=== PATIENT | male | born 1970 | race Caucasian/White ===

== ENCOUNTER 2018-11-13 20:18 | Observation (INO) | payer OTHER ==
[2018-11-13] MEDS ORDERED: methylPREDNISolone SOD SUCCI 125 MG/2 ML VIAL IV STA (21:37)
[2018-11-13] MEDS ORDERED: hydrOXYzine HCL 25 MG TAB PO STA (21:38)
[2018-11-13] MEDS ORDERED: VANCOMYCIN IV PER PHARMACY 1 EACH MISC MISCELLANE PRN (21:38)
[2018-11-13] MEDS ORDERED: VANCOMYCIN 1,500 MG in SODIUM CHLORIDE 0.9% 250 ML IVPB STA (21:40)
--- NOTE | 2018-11-13 21:55 | ED ---
Skin/Abscess/FB HPI - General Chief complaint: Skin/Abscess/Foreign Body Stated complaint: Rash on skin Time Seen by Provider: 11/13/18 20:46 Source: patient, RN notes reviewed Mode of arrival: ambulatory Limitations: no limitations - Related Data Home Medications Medication Instructions Recorded Confirmed Acetaminophen Tab [Tylenol Tab] 650 mg PO Q4H PRN 11/13/18 11/13/18 diphenhydrAMINE HCL [Benadryl] 25 - 50 mg PO Q6H PRN 11/13/18 11/13/18 Allergies Allergy/AdvReac Type Severity Reaction Status Date / Time No Known Allergies Allergy Verified 11/13/18 21:18 Review of Systems ROS Statement: Those systems with pertinent positive or pertinent negative responses have been documented in the HPI. ROS Other: All systems not noted in ROS Statement are negative. Past Medical History Past Medical History: No Reported History History of Any Multi-Drug Resistant Organisms: None Reported Past Surgical History: No Surgical Hx Reported Past Psychological History: No Psychological Hx Reported Smoking Status: Current every day smoker Past Alcohol Use History: None Reported Past Drug Use History: None Reported General Exam Limitations: no limitations General appearance: alert, in no apparent distress Head exam: Present: atraumatic, normocephalic, normal inspection Eye exam: Present: normal appearance, PERRL, EOMI. Absent: scleral icterus, conjunctival injection, periorbital swelling ENT exam: Present: normal oropharynx, mucous membranes moist, TM's normal bilaterally. Absent: normal external ear exam (Moderate swelling and erythema noted to the left ear, purulent drainage noted, open wounds) Neck exam: Present: normal inspection, full ROM. Absent: tenderness, meningismus, lymphadenopathy Respiratory exam: Present: normal lung sounds bilaterally. Absent: respiratory distress, wheezes, rales, rhonchi, stridor Cardiovascular Exam: Present: regular rate, normal rhythm, normal heart sounds. Absent: systolic murmur, diastolic murmur, rubs, gallop, clicks GI/Abdominal exam: Present: soft, normal bowel sounds. Absent: distended, tenderness, guarding, rebound, rigid Neurological exam: Present: alert, oriented X3 Skin exam: Present: warm, dry, intact, normal color, rash (Diffuse erythematous patchy rash with noted dry skin, hands are scaly) Course Vital Signs 11/13/18 11/13/18 20:31 22:29 Temperature 98.2 F Pulse Rate 87 78 Respiratory 20 16 Rate Blood Pressure 119/70 101/70 O2 Sat by Pulse 98 95 Oximetry Medical Decision Making - Medical Decision Making 48-year-old male presented for rash, swelling. Patient will be admitted for IV steroids, antibiotics and further evaluation. - Lab Data Result diagrams: 11/13/18 21:51 11/13/18 21:51 Lab Results 11/13/18 11/13/18 Range/Units 21:51 21:51 WBC 12.6 H (3.8-10.6) k/uL RBC 5.01 (4.30-5.90) m/uL Hgb 16.0 (13.0-17.5) gm/dL Hct 49.8 (39.0-53.0) % MCV 99.5 (80.0-100.0) fL MCH 32.0 (25.0-35.0) pg MCHC 32.1 (31.0-37.0) g/dL RDW 14.6 (11.5-15.5) % Plt Count 356 (150-450) k/uL Neutrophils % 63 % Lymphocytes % 24 % Monocytes % 7 % Eosinophils % 4 % Basophils % 1 % Neutrophils # 7.9 H (1.3-7.7) k/uL Lymphocytes # 3.0 (1.0-4.8) k/uL Monocytes # 0.8 (0-1.0) k/uL Eosinophils # 0.6 (0-0.7) k/uL Basophils # 0.1 (0-0.2) k/uL Macrocytosis Slight Sodium 142 (137-145) mmol/L Potassium 4.1 (3.5-5.1) mmol/L Chloride 107 (98-107) mmol/L Carbon Dioxide 27 (22-30) mmol/L Anion Gap 8 mmol/L BUN 16 (9-20) mg/dL Creatinine 0.96 (0.66-1.25) mg/dL Est GFR (CKD-EPI)AfAm >90 (>60 ml/min/1.73 sqM) Est GFR (CKD-EPI)NonAf >90 (>60 ml/min/1.73 sqM) Glucose 97 (74-99) mg/dL Calcium 9.7 (8.4-10.2) mg/dL Total Bilirubin 0.5 (0.2-1.3) mg/dL AST 27 (17-59) U/L ALT 37 (21-72) U/L Alkaline Phosphatase 91 (38-126) U/L Total Protein 7.7 (6.3-8.2) g/dL Albumin 4.3 (3.5-5.0) g/dL Disposition Clinical Impression: Dermatitis, Cellulitis, face Disposition: ADMITTED IP TO THIS HOSP Referrals: None,Stated [Primary Care Provider] - 1-2 days
[2018-11-13 22:12] LABS: Basophils # (A) 0.1 k/uL (0-0.2); Basophils % (A) 1 %; Eosinophils # (A) 0.6 k/uL (0-0.7); Eosinophils % (A) 4 %; HCT 49.8 % (39.0-53.0); Lymphocytes % (A) 24 %; MCHC 32.1 g/dL (31.0-37.0); MCV 99.5 fL (80.0-100.0); Macrocytosis Slight; Mean Platelet Volume 6.1; Monocytes # (A) 0.8 k/uL (0-1.0); Monocytes % (A) 7 %; Neutrophils # (A) 7.9 k/uL (1.3-7.7); Neutrophils % (A) 63 %; Platelet Count 356 k/uL (150-450); RBC 5.01 m/uL (4.30-5.90); RDW 14.6 % (11.5-15.5); WBC 12.6 k/uL (3.8-10.6)
[2018-11-13 22:21] LABS: ALT 37 U/L (21-72); AST 27 U/L (17-59); Albumin 4.3 g/dL (3.5-5.0); Alkaline Phosphatase 91 U/L (38-126); Anion Gap 8 mmol/L; Blood Urea Nitrogen 16 mg/dL (9-20); Calcium 9.7 mg/dL (8.4-10.2); Carbon Dioxide 27 mmol/L (22-30); Chloride 107 mmol/L (98-107); Glucose 97 mg/dL (74-99); Potassium 4.1 mmol/L (3.5-5.1); Sodium 142 mmol/L (137-145); Total Bilirubin 0.5 mg/dL (0.2-1.3); Total Protein 7.7 g/dL (6.3-8.2)
--- NOTE | 2018-11-13 22:47 | XR ---
EXAM: XR Chest, 2 Views CLINICAL HISTORY: Reason: Cough/pain TECHNIQUE: Frontal and lateral views of the chest. COMPARISON: None available FINDINGS: Lungs: Right basilar opacity suggesting right middle lobe infiltrate or partial atelectasis. Lungs are otherwise clear. Pleural space: No evidence of pneumothorax or pleural effusion. Heart: Heart size is within normal limits. Mediastinum: Mediastinal structures are unremarkable. Bones/joints: Mild mid-lower thoracic vertebral compression fractures of indeterminate age. IMPRESSION: Right middle lobe infiltrate or partial atelectasis. Findings raise possibility of pneumonia. Clinical correlation is suggested and short- term radiographic follow-up recommended to confirm clearing.
[2018-11-13] MEDS ORDERED: NALOXONE 0.4 MG/ML 1 ML VIAL IV PRN (23:04)
[2018-11-14] MEDS ORDERED: diphenhydrAMINE 25 MG CAP PO PRN (02:12)
--- NOTE | 2018-11-14 06:19 | P.HPIM ---
History of Present Illness H&P Date: 11/14/18 Patient is a 48-year-old male with no known PMH who presented to the ED due to diffuse rash. The patient notes that he was in his usual state of health until for 5 days ago when he initially noticed some small white lesions on the palmar aspect of his hands bilaterally. The rash subsequently spread to his hands, elbows, back, scalp, abdomen, and groin region. The rash was somewhat burning in nature, and is intensely pruritic. The patient notes that he has never had such a rash in the past. He also endorsed multiple episodes of fever at home over the last few weeks which resolved spontaneously. He also endorsed mild diffuse joint pains, and increased fatigue during that same time. The patient denied any tick bites, new medications, sick contacts, chest pain, shortness of breath, nausea, vomiting, abdominal pain, diarrhea. 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 Review of Systems Pertinent positives and negatives as discussed in HPI, a complete review of systems was performed and all other systems are negative. Past Medical History Past Medical History: No Reported History Additional Past Medical History / Comment(s): drives trucks throughout [facility] History of Any Multi-Drug Resistant Organisms: None Reported Past Surgical History: No Surgical Hx Reported Past Anesthesia/Blood Transfusion Reactions: No Reported Reaction Past Psychological History: No Psychological Hx Reported Smoking Status: Current every day smoker Past Alcohol Use History: None Reported Past Drug Use History: None Reported Medications and Allergies Home Medications Medication Instructions Recorded Confirmed Type Acetaminophen Tab [Tylenol Tab] 650 mg PO Q4H PRN 11/13/18 11/13/18 History diphenhydrAMINE HCL [Benadryl] 25 - 50 mg PO Q6H PRN 11/13/18 11/13/18 History Allergies Allergy/AdvReac Type Severity Reaction Status Date / Time No Known Allergies Allergy Verified 11/13/18 21:18 Physical Exam Vitals: Vital Signs Temp Pulse Pulse Resp BP BP Pulse Ox 11/14/18 02:12 97.2 F L 80 18 106/68 94 L 11/14/18 00:30 61 16 109/70 95 11/13/18 23:22 83 15 102/66 95 11/13/18 22:29 78 16 101/70 95 11/13/18 20:31 98.2 F 87 20 119/70 98 Intake and Output 11/13/18 11/13/18 11/14/18 14:59 22:59 06:59 Other: Weight 77.111 kg General: non toxic, no distress, appears at stated age, normal weight Derm: [place] rash with silver scales throughout Head: atraumatic, normocephalic, symmetric Eyes: EOMI, no lid lag, anicteric sclera, pupils equal round reactive to light ENT: Nose and ears atraumatic, no thrush, no pharyngeal erythema Neck: No thyromegaly, no cervical lymphadenopathy, trachea midline, supple Mouth: no lip lesion, mucus membranes moist Cardiovascular: S1S2 reg, no murmur, positive posterior tibial pulse bilateral, no edema, capillary refill less than 2 seconds Lungs: CTA bilateral, no rhonchi, no rales , no accessory muscle use Abdominal: soft, nontender to palpation, left inguinal hernia, patient able to reduce the hernia but with some discomfort, mild to moderate tenderness to palpation of hernia Ext: no gross muscle atrophy, muscle strength 5 out of 5 in all 4 extremities grossly, no contractures, Neuro: CN II-XI grossly intact, light touch intact all 4 extremities, finger to nose within normal limits, Psych: Alert, oriented, appropriate affect Results CBC & Chem 7: 11/13/18 21:51 11/13/18 21:51 Labs: Abnormal Lab Results - Last 24 Hours (Table) 11/13/18 Range/Units 21:51 WBC 12.6 H (3.8-10.6) k/uL Neutrophils # 7.9 H (1.3-7.7) k/uL Thrombosis Risk Factor Assmnt - Choose All That Apply Each Factor Represents 1 point: Age 41-60 years Thrombosis Risk Factor Assessment Total Risk Factor Score: 1 Thrombosis Risk Factor Assessment Level: Low Risk Assessment and Plan Plan: Rash, possibly psoriasis, explosive, possible superimposed bacterial infection -Check HIV status -Check ESR, CRP -Check serology including LUCIAN, and dsDNA -Consider Dermatology consult -C/w Solu-medrol 40 mg q12h Left-sided hernia, tender -Surgery consult DVT//GI prophylaxis -Heparin -Protonix The patient is admitted with an anticipated less than 2 midnight stay for evaluation of rash. CODE STATUS: Full code Discussed with: Patient Anticipated discharge date: 11/16/[address]: Home A total of 40 minutes was spent on the care of this complex patient more than 50 % of the time was spent in counseling and care coordination.
[2018-11-14] MEDS: HEPARIN SODIUM,PORCINE 5,000 UNIT/ML 1 ML VIAL SQ SCH ×2 (08:12→18:05)
[2018-11-14] MEDS: PANTOPRAZOLE 40 MG TABLET PO SCH (08:12)
[2018-11-14] MEDS: methylPREDNISolone SOD SUCCI 40 MG/ML 1 ML VIAL IV SCH ×2 (11:13→21:59)
--- NOTE | 2018-11-14 11:15 | P.GSCN ---
<Vale Johnson - Last Filed: 11/14/18 11:10> History of Present Illness Consult date: 11/14/18 Reason for Consult: hernia Requesting physician: Ruth Navarro History of present illness: CHIEF COMPLAINT: hernia HISTORY OF PRESENT ILLNESS: 48-year-old male who really presented to the hospital due to rash. General surgery was consulted for left hernia. Patient was examined at the bedside. Patient states he has had this hernia for approximately one year. He does report it has increased in size. He also reports increased pain to the area. Denies constipation or diarrhea. Denies blood in his stool. Denies nausea or vomiting. 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 PAST MEDICAL HISTORY: See list. PAST SURGICAL HISTORY: See list. MEDICATIONS: See list. ALLERGIES: See list. SOCIAL HISTORY: No illicit drug use. REVIEW OF SYSTEMS: CONSTITUTIONAL: Denies fever or chills. HEENT: Denies blurred vision, vision changes, or eye pain. Denies hemoptysis ENDOCRINE: Denies heat or cold intolerance. CARDIOVASCULAR: Denies chest pain or pressure. RESPIRATORY: No shortness of breath. GASTROINTESTINAL: Denies abdominal pain. Denies nausea or vomiting. Reports hernia with increased pain. NEURO: Denies history of seizures. PSYCH: No depression or suicidal ideation HEMATOLOGIC: Denies bleeding disorders. LYMPHATIC: The patient denies any lumps and bumps around the neck. GENITOURINARY: Denies any blood in urine or increased urinary frequency. MUSCULOSKELETAL: Denies myalgias. Denies joint swelling. Denies decreased range of motion beyond patients baseline. SKIN: Reports rash. PHYSICAL EXAM: VITAL SIGNS: Currently stable. GENERAL: Well-developed in no acute distress. HEENT: No sclera icterus. Extraocular movements grossly intact. Moist buccal mucosa. Head is atraumatic, normocephalic. Hears conversational speech. No nasal drainage. NECK: Supple without lymphadenopathy. CHEST: Non-labored respirations and equal bilateral excursions. CARDIOVASCULAR: Regular rate with regular rhythm. Palpable 2+ radial pulses. ABDOMEN: Soft. Nondistended. Left inguinal hernia present. Reducible although tender upon palpation. MUSCULOSKELETAL: No clubbing, cyanosis or edema. NEUROLOGIC: No focal or lateralizing signs. Cranial nerves II through XII grossly intact. PSYCH: Appropriate affect. Alert and oriented to person, place and time. SKIN: Well perfused. Good skin turgor. Rash present. ASSESSMENT: 1. Left inguinal hernia PLAN: 1. Obtain CT scan abdomen/pelvis 2. Regular diet 3. Further recommendations to follow Nurse practitioner note has been reviewed by physician. Signing provider agrees with the documented findings, assessment, and plan of care. Past Medical History Past Medical History: No Reported History Additional Past Medical History / Comment(s): drives trucks throughout [facility] History of Any Multi-Drug Resistant Organisms: None Reported Past Surgical History: No Surgical Hx Reported Past Anesthesia/Blood Transfusion Reactions: No Reported Reaction Past Psychological History: No Psychological Hx Reported Smoking Status: Current every day smoker Past Alcohol Use History: None Reported Past Drug Use History: None Reported Medications and Allergies Home Medications Medication Instructions Recorded Confirmed Type Acetaminophen Tab [Tylenol Tab] 650 mg PO Q4H PRN 11/13/18 11/13/18 History diphenhydrAMINE HCL [Benadryl] 25 - 50 mg PO Q6H PRN 11/13/18 11/13/18 History Allergies Allergy/AdvReac Type Severity Reaction Status Date / Time No Known Allergies Allergy Verified 11/13/18 21:18 Surgical - Exam Vital Signs Temp Pulse Resp BP Pulse Ox 98.2 F 87 20 119/70 98 11/13/18 20:31 11/13/18 20:31 11/13/18 20:31 11/13/18 20:31 11/13/18 20:31 Results - Labs 11/13/18 21:51 11/13/18 21:51 Abnormal Lab Results - Last 24 Hours (Table) 11/13/18 11/14/18 11/14/18 Range/Units 21:51 08:01 08:01 WBC 12.6 H (3.8-10.6) k/uL Neutrophils # 7.9 H (1.3-7.7) k/uL ESR 18 H (0-15) mm/hr C-Reactive Protein 14.2 H (<10.0) mg/L Diabetes panel 11/13/18 Range/Units 21:51 Sodium 142 (137-145) mmol/L Potassium 4.1 (3.5-5.1) mmol/L Chloride 107 (98-107) mmol/L Carbon Dioxide 27 (22-30) mmol/L BUN 16 (9-20) mg/dL Creatinine 0.96 (0.66-1.25) mg/dL Glucose 97 (74-99) mg/dL Calcium 9.7 (8.4-10.2) mg/dL AST 27 (17-59) U/L ALT 37 (21-72) U/L Alkaline Phosphatase 91 (38-126) U/L Total Protein 7.7 (6.3-8.2) g/dL Albumin 4.3 (3.5-5.0) g/dL Calcium panel 11/13/18 Range/Units 21:51 Calcium 9.7 (8.4-10.2) mg/dL Albumin 4.3 (3.5-5.0) g/dL Pituitary panel 11/13/18 Range/Units 21:51 Sodium 142 (137-145) mmol/L Potassium 4.1 (3.5-5.1) mmol/L Chloride 107 (98-107) mmol/L Carbon Dioxide 27 (22-30) mmol/L BUN 16 (9-20) mg/dL Creatinine 0.96 (0.66-1.25) mg/dL Glucose 97 (74-99) mg/dL Calcium 9.7 (8.4-10.2) mg/dL Adrenal panel 11/13/18 Range/Units 21:51 Sodium 142 (137-145) mmol/L Potassium 4.1 (3.5-5.1) mmol/L Chloride 107 (98-107) mmol/L Carbon Dioxide 27 (22-30) mmol/L BUN 16 (9-20) mg/dL Creatinine 0.96 (0.66-1.25) mg/dL Glucose 97 (74-99) mg/dL Calcium 9.7 (8.4-10.2) mg/dL Total Bilirubin 0.5 (0.2-1.3) mg/dL AST 27 (17-59) U/L ALT 37 (21-72) U/L Alkaline Phosphatase 91 (38-126) U/L Total Protein 7.7 (6.3-8.2) g/dL Albumin 4.3 (3.5-5.0) g/dL <Marino Ramos - Last Filed: 11/14/18 18:35> History of Present Illness History of present illness: As above. Patient has had this hernia for the last year or so. Slightly increased in size. No nausea or vomiting. Normal bowel habits. On examination the hernia is fully reducible without significant difficulty. Mild tenderness on exam at this time. No urgent surgical intervention required. Would complete workup of the patient's rash. Patient can follow-up in the outpatient setting. We'll sign off. Please call if needed. Surgical - Exam Vital Signs Temp Pulse Resp BP Pulse Ox 98.2 F 87 20 119/70 98 11/13/18 20:31 11/13/18 20:31 11/13/18 20:31 11/13/18 20:31 11/13/18 20:31 Results - Labs 11/13/18 21:51 11/13/18 21:51 Abnormal Lab Results - Last 24 Hours (Table) 11/13/18 11/14/18 11/14/18 Range/Units 21:51 08:01 08:01 WBC 12.6 H (3.8-10.6) k/uL Neutrophils # 7.9 H (1.3-7.7) k/uL ESR 18 H (0-15) mm/hr C-Reactive Protein 14.2 H (<10.0) mg/L Diabetes panel 11/13/18 Range/Units 21:51 Sodium 142 (137-145) mmol/L Potassium 4.1 (3.5-5.1) mmol/L Chloride 107 (98-107) mmol/L Carbon Dioxide 27 (22-30) mmol/L BUN 16 (9-20) mg/dL Creatinine 0.96 (0.66-1.25) mg/dL Glucose 97 (74-99) mg/dL Calcium 9.7 (8.4-10.2) mg/dL AST 27 (17-59) U/L ALT 37 (21-72) U/L Alkaline Phosphatase 91 (38-126) U/L Total Protein 7.7 (6.3-8.2) g/dL Albumin 4.3 (3.5-5.0) g/dL Calcium panel 11/13/18 Range/Units 21:51 Calcium 9.7 (8.4-10.2) mg/dL Albumin 4.3 (3.5-5.0) g/dL Pituitary panel 11/13/18 Range/Units 21:51 Sodium 142 (137-145) mmol/L Potassium 4.1 (3.5-5.1) mmol/L Chloride 107 (98-107) mmol/L Carbon Dioxide 27 (22-30) mmol/L BUN 16 (9-20) mg/dL Creatinine 0.96 (0.66-1.25) mg/dL Glucose 97 (74-99) mg/dL Calcium 9.7 (8.4-10.2) mg/dL Adrenal panel 11/13/18 Range/Units 21:51 Sodium 142 (137-145) mmol/L Potassium 4.1 (3.5-5.1) mmol/L Chloride 107 (98-107) mmol/L Carbon Dioxide 27 (22-30) mmol/L BUN 16 (9-20) mg/dL Creatinine 0.96 (0.66-1.25) mg/dL Glucose 97 (74-99) mg/dL Calcium 9.7 (8.4-10.2) mg/dL Total Bilirubin 0.5 (0.2-1.3) mg/dL AST 27 (17-59) U/L ALT 37 (21-72) U/L Alkaline Phosphatase 91 (38-126) U/L Total Protein 7.7 (6.3-8.2) g/dL Albumin 4.3 (3.5-5.0) g/dL
[2018-11-14] MEDS: IOPAMIDOL-300 CONTRAST 30 ML VIAL (ORAL USE) PO PRN ×2 (11:22→12:06)
[2018-11-14] MEDS: VANCOMYCIN 1,500 MG in SODIUM CHLORIDE 0.9% 250 ML IVPB SCH (12:07)
--- NOTE | 2018-11-14 13:44 | CT ---
EXAMINATION TYPE: CT abdomen pelvis w con DATE OF EXAM: 11/14/2018 COMPARISON: 08/01/2010 HISTORY: LLQ pain CT DLP: 651.6 mGycm Automated exposure control for dose reduction was used. TECHNIQUE: Helical acquisition of images was performed from the lung bases through the pelvis. CONTRAST: Performed with Oral Contrast and with IV Contrast, patient injected with 100 mL of Isovue 300. FINDINGS: None LUNG BASES: Right middle lobe atelectasis is noted as well as minimal bibasilar subsegmental dependen t atelectasis. Bandlike pleural parenchymal scarring is seen at the left lung base. Small hiatal kirby ia is present. LIVER/GB: Too small to accurately character is left hepatic lobe lesion is seen on series 3 image 29 measuring 3 mm. This is unchanged from the prior of 2009 and therefore most compatible with a benign cyst as has appearance of fluid attenuation on the prior. PANCREAS: No significant abnormality is seen. SPLEEN: No significant abnormality is seen. ADRENALS: No significant abnormality is seen. KIDNEYS: Kidneys enhance and excrete symmetrically without hydronephrosis. FREE AIR: No free air is visualized. ADENOPATHY: No greater than 1 cm short axis lymph node is seen within the abdomen or pelvis. URINARY BLADDER: No significant abnormality is seen. OSSEOUS STRUCTURES: There is grade 2 anterolisthesis of L5 on S1 with associated severe degenerative change secondary to bilateral pars interarticularis defects. BOWEL: There is a left inguinal hernia containing loops of small bowel. The afferent and efferent lo ops are decompressed as the anterior accident the hernia. Small bowel loops within the hernia demonst rate no evidence of pneumatosis intestinalis however appear incarcerated. Proximal small bowel is non dilated. Moderate amount retained colonic stool is noted. IMPRESSION: SMALL BOWEL CONTAINING LEFT INGUINAL CANAL WITH THE ENTERING AND EXITING AFFERENT AND EFFERENT LOOPS DECOMPRESSED CONCERNING FOR INCARCERATION. CORRELATE WITH CLINICAL EXAM. NO SIGNIFICANT SURROUNDING I NFLAMMATORY CHANGE OR PNEUMATOSIS INTESTINALIS.
--- NOTE | 2018-11-14 15:39 | P.PN ---
Progress Note - Text Progress Note Date: 11/14/18 Please refer to the H&P for full details. 48-year-old male with no PMH presents the ED for diffuse rash and hernia of the abdominal wall. He was started on IV vancomycin and Solu-Medrol IV for his rash and surgery was consulted for possible incarcerated hernia. Patient was seen and examined around 3:30 PM. No acute events overnight. Patient reports great improvement in his rash since being started on steroids and antibiotics. He continues to complain of left-sided abdominal pain at the site of his hernia. Patient reports being able to manually reduce it. CT of the abdomen is performed which shows left inguinal hernia concerning for incarceration. We will continue IV steroids and antibiotics for his rash. His ESR and CRP is elevated. Surgery is evaluating the patient for his inguinal hernia and will follow-up with surgery for further recommendations regarding the course of action for this patient. We will follow blood cultures, LUCIAN, anti-double- stranded DNA, HIV. Patient is likely going to be discharged tomorrow if there is no surgical intervention planned. He is pending clinical improvement.
[2018-11-14 16:20] LABS: DNA Double-Stranded NEGATIVE (NEGATIVE)
[2018-11-14 17:24] LABS: HIV 1 AB Non-Reactive (Non-Reactive); HIV AB P24 Non-Reactive (Non-Reactive); HIV P24 AG Non-Reactive (Non-Reactive)
[2018-11-15] MEDS: VANCOMYCIN 1,500 MG in SODIUM CHLORIDE 0.9% 250 ML IVPB SCH ×2 (00:22→11:59)
[2018-11-15] MEDS: HEPARIN SODIUM,PORCINE 5,000 UNIT/ML 1 ML VIAL SQ SCH ×2 (00:23→08:23)
[2018-11-15 08:19] VITALS: BP 110/59; PULSE 57; RESP 16; TEMP 97.2
[2018-11-15] MEDS: PANTOPRAZOLE 40 MG TABLET PO SCH (08:22)
[2018-11-15] MEDS: methylPREDNISolone SOD SUCCI 40 MG/ML 1 ML VIAL IV SCH (08:56)
--- NOTE | 2018-11-15 09:08 | P.DS ---
Providers Date of admission: 11/14/18 00:10 Expected date of discharge: 11/15/18 Attending physician: Ruth Navarro MD Consults: Surgery Primary care physician: Stated None Hospital Course: 48-year-old male with no known PMH who presented to the ED due to diffuse rash. The patient notes that he was in his usual state of health until for 5 days ago when he initially noticed some small white lesions on the palmar aspect of his hands bilaterally. The rash subsequently spread to his hands, elbows, back , scalp, abdomen, and groin region. The rash was somewhat burning in nature, and is intensely pruritic. The patient notes that he has never had such a rash in the past. He also endorsed multiple episodes of fever at home over the last few weeks which resolved spontaneously. He also endorsed mild diffuse joint pains, and increased fatigue during that same time. The patient denied any tick bites, new medications, sick contacts, chest pain, shortness of breath, nausea, vomiting, abdominal pain, diarrhea. 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 His rash was thought to be secondary to psoriasis flareup. Patient was afebrile but had a mild leukocytosis of 12.6. HIV was negative. ESR and CRP was slightly elevated. LUCIAN and double-stranded DNA were negative. Patient was started on Solu-Medrol 40 mg IV twice a day and vancomycin IV. He was transitioned to prednisone on discharge. Vancomycin was discontinued, thought to be not an infectious cause. Surgery was consulted for his left and one or hernia. CT of the abdomen and pelvis was performed confirming the hernia, possible strangulation. Patient was evaluated by general surgery Dr. Ramos and was advised to follow-up in the outpatient setting for possible elective surgery. Patient was seen and examined prior to discharge. No acute events overnight. Patient reports great improvement in his rash. He denies any fever or chills. No nausea or vomiting. Patient denies any abdominal pain, changes in bowel habits. He is looking for to going home. General: [non toxic], [no distress], [appears at stated age] Derm: [warm], [dry], [widespread papular rash over the palms, extensor surfaces in all 4 extremities and around the scalp hairline] Head: [atraumatic], [normocephalic], [symmetric] Eyes: [EOMI], [no lid lag], [anicteric sclera] Mouth: [no lip lesion], [mucus membranes moist] Cardiovascular: [S1S2 reg], [no murmur], [positive posterior tibial pulse bilateral], Lungs: [CTA bilateral], [no rhonchi, no rales] , [no accessory muscle use] Abdominal: [soft], [ nontender to palpation], [no guarding], [no appreciable organomegaly], [left indirect inguinal hernia, reducible] Ext: [no gross muscle atrophy], [no edema], [no contractures] Neuro: [no focal neuro deficits] Psych: [Alert], [oriented], [appropriate affect] Assessment and Plan 1. Psoriasis flare 2. Inguinal hernia 1. Patient had a mild leukocytosis of 12.6 on admission while afebrile. Initially started on vancomycin IV, blood cultures negative after 24 hours. Will discharge home on Bactrim to complete a total of 10 days. Transitioned from IV Solu-Medrol to by mouth prednisone. HIV negative. Anti-double- stranded DNA negative. LUCIAN negative. ESR of 18 and CRP of 14.2, could be elevated due to psoriasis. We'll need follow-up with dermatology and PCP. 2. CT of the abdomen pelvis show a inguinal hernia, possible strangulation. As per Dr. Lemus, recommends outpatient follow-up for elective surgery. Patient advised of warning symptoms of strangulation. Pertinent Studies: CT abdomen and pelvis Patient Condition at Discharge: Fair Plan - Discharge Summary Discharge Rx Participant: No New Discharge Prescriptions: New predniSONE 50 mg PO DAILY #4 tab Sulfamethox-Tmp 800-160Mg [Bactrim DS 800-160 mg] 1 tab PO Q12HR #16 tab Discontinued diphenhydrAMINE HCL [Benadryl] 25 - 50 mg PO Q6H PRN PRN Reason: Allergic Reaction Acetaminophen Tab [Tylenol Tab] 650 mg PO Q4H PRN PRN Reason: Pain Discharge Medication List Sulfamethox-Tmp 800-160Mg [Bactrim DS 800-160 mg] 1 tab PO Q12HR #16 tab [Rx] predniSONE 50 mg PO DAILY #4 tab 11/15/18 [Rx] Follow up Appointment(s)/Referral(s): None,Stated [Primary Care Provider] - 1-2 days Marino Ramos MD [Medical Doctor] - 1 Week Delgado Bose MD [STAFF PHYSICIAN] - 1 Week Ambulatory/Diagnostic Orders: Complete Blood Count w/diff [LAB.AMB] Time Frame: 3 Days, Location: None Selected Activity/Diet/Wound Care/Special Instructions: Patient needs appointment with PCP within 1-2 days of discharge. Patient needs appointment with dermatology within 1 week of discharge. Patient needs appointment with general surgery within 1 week of discharge. Please take all medications as advised. Discharge Disposition: HOME SELF-CARE
[2018-11-15 09:56] LABS: Anion Gap 9 mmol/L; Blood Urea Nitrogen 16 mg/dL (9-20); Calcium 9.2 mg/dL (8.4-10.2); Carbon Dioxide 22 mmol/L (22-30); Chloride 110 mmol/L (98-107); Glucose 122 mg/dL (74-99); Potassium 4.3 mmol/L (3.5-5.1); Sodium 141 mmol/L (137-145)
== END 2018-11-15 12:39 | disposition home or self-care (01) ==
LOC: EC 20:18 → 4MS4W 11-14 00:10
PROVIDERS: ADMIT Internal Medicine; ATTEND Internal Medicine
DX: L40.9 Psoriasis, unspecified (principal); K40.90 Unilateral inguinal hernia, without obstruction or gangrene, not specified as recurrent; M25.50 Pain in unspecified joint; R79.82 Elevated C-reactive protein (CRP); R70.0 Elevated erythrocyte sedimentation rate; R53.83 Other fatigue; D72.829 Elevated white blood cell count, unspecified; F17.200 Nicotine dependence, unspecified, uncomplicated
CPT/HCPCS: 96376 ×2; 96366 ×3; 96372 ×2; 96365; 96367; 96375; 99284; 36415; 80053; 80048; 85652; 85025; 86140; 87040; 86038; 86225; 87390; 71046; 74177; G0378 ×2; J3370 ×3; J1644 ×2; J2920 ×2; J2930; J0696; Q9967